=== PATIENT | female | born 1980 | race Caucasian/White ===

== ENCOUNTER 2019-02-25 10:13 | Observation (INO) | payer BC ==
[2019-02-25] MEDS ORDERED: Sodium Chloride 0.9% 10 ML Syringe FLUSH PRN (10:23)
[2019-02-25] MEDS ORDERED: Sodium Chloride 0.9% 1,000 ML IV ONE (10:23)
[2019-02-25] MEDS ORDERED: Sodium Chloride 0.9% 2.5 ML Syringe FLUSH PRN (10:23)
[2019-02-25] MEDS ORDERED: methylPREDNISolone Sodium Succinate 125 MG/2 ML SDV IVPUSH ONE (10:23)
[2019-02-25] MEDS ORDERED: Albuterol/Ipratropium 3.0-0.5 MG/3 ML Neb Soln NEB ONE ×2 (10:23→11:56)
--- NOTE | 2019-02-25 10:24 | EDM.PDOC ---
ED HPI GENERAL MEDICAL PROBLEM - General Chief Complaint: Respiratory Problem Stated Complaint: UNABLE TO BREATH Time Seen by Provider: 02/25/19 10:15 - History of Present Illness INITIAL COMMENTS - FREE TEXT/NARRATIVE: HISTORY AND PHYSICAL: History of present illness: The patient is a 38-year-old female who is no significant cardiac or pulmonary history and presents with persistent spastic cough shortness of breath and wheezing. The patient smokes a pack of cigarettes a day for the last 12 years but has never been diagnosed with any pulmonary disease and has had 2 visits to the [facility] clinic as well as an ER visit in [facility] 3 days ago for similar symptoms. She has been on inhalers and prednisone courses and is not improving. She was on a course of Levaquin the january into this month which she has finished. 3 days ago at the ED in [facility] she was given a chest x-ray as well as nebulizer treatments and her steroids were increased to prednisone 20 mg twice a day, she was given her inhalers she was given 2 nebulizer medications for home, one of which she says is a steroid, and she has a physician to follow-up with but has not had a chance to make that appointment as she's been in and out of these ED using clinics. She says she is not improving and she has not been smoking the last few days. She has been eating and drinking normally but she says she is very sore from coughing so much so hard all the time. She says even ambulating to the kitchen or bathroom in her house will trigger a cough and she can't catch her breath and is here for reevaluation and care. Prior to all of these events of the last few weeks she has never had any issues with bronchitis or reactive airway disease. She did not get her influenza shot this year Review of systems: As per history of present illness and below otherwise all systems reviewed and negative. Past medical history: As per history of present illness and as reviewed below otherwise noncontributory. Surgical history: As per history of present illness and as reviewed below otherwise noncontributory. Social history: No reported history of drug or alcohol abuse. Family history: As per history of present illness and as reviewed below otherwise noncontributory. Physical exam: General: Obese female who is nontoxic and has a spastic dry cough in the ED and is speaking softly but is not hoarse. She is breathless with any activity. HEENT: Atraumatic, normocephalic, pupils reactive, negative for conjunctival pallor or scleral icterus, mucous membranes moist, throat clear, neck supple, nontender, trachea midline. Lungs: Coarse breath sounds and scattered wheezes throughout and diminished breath sounds in the bases, mild work of breathing breath sounds equal bilaterally, chest nontender. Heart: S1S2, regular rate and rhythm no overt murmurs Abdomen: Soft, nondistended, nontender. Negative for masses or hepatosplenomegaly. Negative for costovertebral tenderness. Pelvis: Stable nontender. Genitourinary: Deferred. Rectal: Deferred. Extremities: Atraumatic, negative for cords or calf pain. Neurovascular unremarkable. Trace pedal edema Neuro: Awake, alert, oriented. Cranial nerves II through XII unremarkable. Cerebellum unremarkable. Motor and sensory unremarkable throughout. Exam nonfocal. Diagnostics: EKG chest x-ray CBC CMP lactic acid influenza hCG Therapeutics: IV O2 monitor IV fluids Solu-Medrol duo neb The patient's O2 sats have been harboring around 94% but the patient is still taking short shallow breaths and still very dysmetric clinically and has a cough and increased shortness of breath when she is doing any activities here. She is currently on maximum outpatient therapy as far as I can see and I will discuss this case with Dr. Epps for observation admission to see if we can optimize things a bit more. She says she is having great difficulty even doing her activities of daily living due to the cough and getting short of breath with even small activities. She is agreeable for observation admission 1255: Dr. Epps is aware of case and is here in the ED seeing the patient Impression: Persistent bronchospasm, failed outpatient therapy Definitive disposition and diagnosis as appropriate pending reevaluation and review of above. Whole Body Pain Score (Numeric/FACES): 7 - Related Data Allergies Allergy/AdvReac Type Severity Reaction Status Date / Time No Known Allergies Allergy Verified 02/25/19 10:22 Home Meds: Home Meds Albuterol Sulfate [Albuterol Sulfate Hfa] 1 puff INH ASDIRECTED 02/25/19 [ History] Albuterol/Ipratropium [DuoNeb 3.0-0.5 MG/3 ML] 1 dose INH ASDIRECTED 02/25/19 [ History] levoFLOXacin [Levaquin] 750 mg PO DAILY 02/25/19 [History] predniSONE [Prednisone] 20 mg PO BID 02/25/19 [History] Past Medical History HEENT History: Reports: Allergic Rhinitis Cardiovascular History: Reports: None Respiratory History: Reports: Other (See Below) Other Respiratory History: cough, un diagnosed sleep apnea Gastrointestinal History: Reports: None Genitourinary History: Reports: None [employer] History: Reports: Polycystic Ovaries Musculoskeletal History: Reports: None Neurological History: Reports: None Psychiatric History: Reports: Anxiety, Depression Endocrine/Metabolic History: Reports: Obesity/BMI 30+ Hematologic History: Reports: None Immunologic History: Reports: None Oncologic (Cancer) History: Reports: None Dermatologic History: Reports: None - Past Surgical History Head Surgeries/Procedures: Reports: None HEENT Surgical History: Reports: None, Myringotomy w Tube(s), Tonsillectomy Cardiovascular Surgical History: Reports: None Respiratory Surgical History: Reports: None GI Surgical History: Reports: Cholecystectomy Female Surgical History: Reports: None Male Surgical History: Reports: None Endocrine Surgical History: Reports: None Neurological Surgical History: Reports: None Musculoskeletal Surgical History: Reports: None Oncologic Surgical History: Reports: None Dermatological Surgical History: Reports: None Social & Family History - Caffeine Use Caffeine Use: Reports: Coffee ED ROS GENERAL - Review of Systems Review Of Systems: ROS reveals no pertinent complaints other than HPI. ED EXAM, GENERAL - Physical Exam Exam: See Below (see dictation) Course - Vital Signs Last Recorded V/S: Last Vital Signs Temp 36.4 C 02/25/19 10:43 Pulse 89 02/25/19 10:43 Resp 22 H 02/25/19 10:43 BP 136/79 02/25/19 10:43 Pulse Ox 96 02/25/19 10:43 - Orders/Labs/Meds Orders: Active Orders 24 hr Category Date Time Status Cardiac Monitoring [RC] . DIRECTED Care 02/25/19 10:22 Active EKG Documentation Completion [RC] STAT Care 02/25/19 10:22 Active Oxygen Therapy, ED [RC] ASDIRECTED Care 02/25/19 10:22 Active Pulse Oximetry [RC] ASDIRECTED Care 02/25/19 10:22 Active RT Aerosol Therapy [RC] ASDIRECTED Care 02/25/19 10:23 Active RT Aerosol Therapy [RC] ASDIRECTED Care 02/25/19 11:57 Active Sodium Chloride 0.9% [Saline Flush] Med 02/25/19 10:23 Active 10 ml FLUSH ASDIRECTED PRN Sodium Chloride 0.9% [Saline Flush] Med 02/25/19 10:23 Active 2.5 ml FLUSH ASDIRECTED PRN Saline Lock Insert [OM.PC] Stat Oth 02/25/19 10:21 Ordered Medication Orders Sodium Chloride (Saline Flush) 10 ml FLUSH ASDIRECTED PRN PRN Reason: Keep Vein Open Last Admin: 02/25/19 11:16 Dose: 10 ml Sodium Chloride (Saline Flush) 2.5 ml FLUSH ASDIRECTED PRN PRN Reason: Keep Vein Open Last Admin: 02/25/19 11:16 Dose: 2.5 ml Labs: Laboratory Tests 02/25/19 02/25/19 02/25/19 Range/Units 10:40 10:40 10:40 WBC 12.96 H (4.0-11.0) K/uL RBC 5.07 (4.30-5.90) M/uL Hgb 14.1 (12.0-16.0) g/dL Hct 44.4 (36.0-46.0) % MCV 87.6 (80.0-98.0) fL MCH 27.8 (27.0-32.0) pg MCHC 31.8 (31.0-37.0) g/dL RDW Std Deviation 50.3 (28.0-62.0) fl RDW Coeff of Theresa 16 H (11.0-15.0) % Plt Count 234 (150-400) K/uL MPV 11.00 (7.40-12.00) fL Neut % (Auto) 69.0 (48.0-80.0) % Lymph % (Auto) 20.8 (16.0-40.0) % [place] % (Auto) 7.7 (0.0-15.0) % Eos % (Auto) 2.2 (0.0-7.0) % Baso % (Auto) 0.3 (0.0-1.5) % Neut # (Auto) 9.0 H (1.4-5.7) K/uL Lymph # (Auto) 2.7 H (0.6-2.4) K/uL [place] # (Auto) 1.0 H (0.0-0.8) K/uL Eos # (Auto) 0.3 (0.0-0.7) K/uL Baso # (Auto) 0.0 (0.0-0.1) K/uL Nucleated RBC % 0.0 /100WBC Nucleated RBCs # 0 K/uL Lactate 1.6 (0.20-2.00) mmol/L Sodium 143 (136-145) mmol/L Potassium 4.1 (3.5-5.1) mmol/L Chloride 106 (98-107) mmol/L Carbon Dioxide 25.6 (21.0-32.0) mmol/L BUN 15 (7.0-18.0) mg/dL Creatinine 0.7 (0.6-1.0) mg/dL Est Cr Clr Drug Dosing 99.01 mL/min Estimated GFR (MDRD) > 60.0 ml/min Glucose 87 (74-106) mg/dL Calcium 8.6 (8.5-10.1) mg/dL Total Bilirubin 0.2 (0.2-1.0) mg/dL AST 18 (15-37) IU/L ALT 21 (14-63) IU/L Alkaline Phosphatase 72 (46-116) U/L Total Protein 6.5 (6.4-8.2) g/dL Albumin 2.8 L (3.4-5.0) g/dL Globulin 3.7 (2.6-4.0) g/dL Albumin/Globulin Ratio 0.8 L (0.9-1.6) HCG, Qual (NEG) 02/25/19 Range/Units 10:40 WBC (4.0-11.0) K/uL RBC (4.30-5.90) M/uL Hgb (12.0-16.0) g/dL Hct (36.0-46.0) % MCV (80.0-98.0) fL MCH (27.0-32.0) pg MCHC (31.0-37.0) g/dL RDW Std Deviation (28.0-62.0) fl RDW Coeff of Theresa (11.0-15.0) % Plt Count (150-400) K/uL MPV (7.40-12.00) fL Neut % (Auto) (48.0-80.0) % Lymph % (Auto) (16.0-40.0) % [place] % (Auto) (0.0-15.0) % Eos % (Auto) (0.0-7.0) % Baso % (Auto) (0.0-1.5) % Neut # (Auto) (1.4-5.7) K/uL Lymph # (Auto) (0.6-2.4) K/uL [place] # (Auto) (0.0-0.8) K/uL Eos # (Auto) (0.0-0.7) K/uL Baso # (Auto) (0.0-0.1) K/uL Nucleated RBC % /100WBC Nucleated RBCs # K/uL Lactate (0.20-2.00) mmol/L Sodium (136-145) mmol/L Potassium (3.5-5.1) mmol/L Chloride (98-107) mmol/L Carbon Dioxide (21.0-32.0) mmol/L BUN (7.0-18.0) mg/dL Creatinine (0.6-1.0) mg/dL Est Cr Clr Drug Dosing mL/min Estimated GFR (MDRD) ml/min Glucose (74-106) mg/dL Calcium (8.5-10.1) mg/dL Total Bilirubin (0.2-1.0) mg/dL AST (15-37) IU/L ALT (14-63) IU/L Alkaline Phosphatase (46-116) U/L Total Protein (6.4-8.2) g/dL Albumin (3.4-5.0) g/dL Globulin (2.6-4.0) g/dL Albumin/Globulin Ratio (0.9-1.6) HCG, Qual NEGATIVE (NEG) Meds: Medications Generic Name Dose Route Start Last Admin Trade Name Freq PRN Reason Stop Dose Admin Sodium Chloride 10 ml 02/25/19 10:02/25/19 11:16 Saline Flush FLUSH 10 ml ASDIRECTED PRN Administration Keep Vein Open Sodium Chloride 2.5 ml 02/25/19 10:02/25/19 11:16 Saline Flush FLUSH 2.5 ml ASDIRECTED PRN Administration Keep Vein Open Discontinued Medications Generic Name Dose Route Start Last Admin Trade Name Freq PRN Reason Stop Dose Admin Albuterol/Ipratropium 3 ml 02/25/19 10:23 02/25/19 10:31 Duoneb 3.0-0.5 Mg/3 Ml NEB 02/25/19 10:24 3 ml ONETIME ONE Administration Albuterol/Ipratropium 3 ml 02/25/19 11:56 02/25/19 12:06 Duoneb 3.0-0.5 Mg/3 Ml NEB 02/25/19 11:57 3 ml ONETIME ONE Administration Sodium Chloride 1,000 mls @ 999 mls/hr 02/25/19 10:23 02/25/19 11:15 Normal Saline IV 02/25/19 11:23 999 mls/hr STAT ONE Administration Methylprednisolone Sodium Succinate 125 mg 02/25/19 10:23 02/25/19 11:16 Solu-Medrol IVPUSH 02/25/19 10:24 125 mg ONETIME ONE Administration Departure - Departure Time of Disposition: 12:57 Disposition: Refer to Observation Condition: Good Clinical Impression: Bronchospasm, Failure of outpatient treatment - Discharge Information Referrals: PCP,Unknown [Primary Care Provider] - Forms: ED Department Discharge - My Orders Last 24 Hours: My Active Orders 02/25/19 10:21 Saline Lock Insert [OM.PC] Stat 02/25/19 10:22 Cardiac Monitoring [RC] . DIRECTED EKG Documentation Completion [RC] STAT Oxygen Therapy, ED [RC] ASDIRECTED Pulse Oximetry [RC] ASDIRECTED 02/25/19 10:23 RT Aerosol Therapy [RC] ASDIRECTED Sodium Chloride 0.9% [Saline Flush] 10 ml FLUSH ASDIRECTED PRN Sodium Chloride 0.9% [Saline Flush] 2.5 ml FLUSH ASDIRECTED PRN 02/25/19 11:57 RT Aerosol Therapy [RC] ASDIRECTED - Assessment/Plan Last 24 Hours: My Active Orders 02/25/19 10:21 Saline Lock Insert [OM.PC] Stat 02/25/19 10:22 Cardiac Monitoring [RC] . DIRECTED EKG Documentation Completion [RC] STAT Oxygen Therapy, ED [RC] ASDIRECTED Pulse Oximetry [RC] ASDIRECTED 02/25/19 10:23 RT Aerosol Therapy [RC] ASDIRECTED Sodium Chloride 0.9% [Saline Flush] 10 ml FLUSH ASDIRECTED PRN Sodium Chloride 0.9% [Saline Flush] 2.5 ml FLUSH ASDIRECTED PRN 02/25/19 11:57 RT Aerosol Therapy [RC] ASDIRECTED
[2019-02-25 12:17] LABS: CHLORIDE,CL 106 mmol/L (98-107); SODIUM,NA 143 mmol/L (136-145)
--- NOTE | 2019-02-25 12:35 | CR ---
INDICATION: pain/sob COMPARISON: None. FINDINGS: Single portable AP view of the chest demonstrates adequate inflation of the lungs. No focal airspace consolidation, pneumothorax or effusion. Cardiomediastinal silhouette is unremarkable for an AP view. No acute osseous findings. IMPRESSION: Negative single AP view of the chest. - Consider dedicated PA and lateral views, as clinically warranted. Dictated by Carmelo Suarez MD @ 02/25/2019 12:33:44 PM Dictated by: Carmelo Suarez MD @ 02/25/2019 12:33:51 (Electronically Signed)
[2019-02-25] MEDS ORDERED: Acetaminophen 325 MG Tab PO PRN (13:14)
[2019-02-25] MEDS ORDERED: Docusate Sodium 100 MG Cap PO PRN (13:14)
[2019-02-25] MEDS ORDERED: Ondansetron 4 MG Tab.DIS PO PRN (13:14)
--- NOTE | 2019-02-25 13:25 | PCM.HP ---
H&P History of Present Illness - General Date of Service: 02/25/19 Admit Problem/Dx: Admission Diagnosis/Problem Admission Diagnosis/Problem Bronchospasm, shortness of breath Source of Information: Patient History Limitations: Reports: No Limitations - History of Present Illness Initial Comments - Free Text/Narative: The patient is a 38-year-old lady who had presented to the emergency department with a complaint of persistent cough with shortness of breath and wheezing. The patient reports that this is been going on for approximately 2 weeks. The patient had followed up with an urgent care center and received some treatment but this did not help her. So had been on some steroids and some antibiotics which have not worked. The patient also has been using nebulizer treatments at home and these have not helped her. The patient has denied any fever or chills. She says that she is very fatigued from not being able to sleep secondary to the coughing. Patient also has not been able to cough up any sputum. The patient has never been diagnosed with any particular heart or respiratory disease. The patient has had no specific aggravating or relieving factors. She also denied any sick contacts. Onset of Symptoms: Reports: Gradual Duration of Symptoms: Reports: Week(s):, Getting Worse Location: Reports: Chest Quality: Reports: Ache Severity: Moderate Improves with: Reports: Rest Worsens with: Reports: Breathing Context: Denies: Sick Contact Associated Symptoms: Reports: Cough, Loss of Appetite Whole Body Pain Score (Numeric/FACES): 7 - Related Data Allergies/Adverse Reactions: Allergies Allergy/AdvReac Type Severity Reaction Status Date / Time No Known Allergies Allergy Verified 02/25/19 10:22 Home Medications: Home Meds Albuterol Sulfate [Albuterol Sulfate Hfa] 1 puff INH ASDIRECTED 02/25/19 [ History] Albuterol/Ipratropium [DuoNeb 3.0-0.5 MG/3 ML] 1 dose INH ASDIRECTED 02/25/19 [ History] levoFLOXacin [Levaquin] 750 mg PO DAILY 02/25/19 [History] predniSONE [Prednisone] 20 mg PO BID 02/25/19 [History] Past Medical History HEENT History: Reports: Allergic Rhinitis Cardiovascular History: Reports: None Respiratory History: Reports: Other (See Below) Other Respiratory History: cough, un diagnosed sleep apnea Gastrointestinal History: Reports: None Genitourinary History: Reports: None [employer]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: Polycystic Ovaries Musculoskeletal History: Reports: None Neurological History: Reports: None Psychiatric History: Reports: Anxiety, Depression Endocrine/Metabolic History: Reports: Obesity/BMI 30+ Hematologic History: Reports: None Immunologic History: Reports: None Oncologic (Cancer) History: Reports: None Dermatologic History: Reports: None - Infectious Disease History Infectious Disease History: Reports: None - Past Surgical History Head Surgeries/Procedures: Reports: None HEENT Surgical History: Reports: None, Myringotomy w Tube(s), Tonsillectomy Cardiovascular Surgical History: Reports: None Respiratory Surgical History: Reports: None GI Surgical History: Reports: Cholecystectomy Female Surgical History: Reports: None Male Surgical History: Reports: None Endocrine Surgical History: Reports: None Neurological Surgical History: Reports: None Musculoskeletal Surgical History: Reports: None Oncologic Surgical History: Reports: None Dermatological Surgical History: Reports: None Social & Family History - Family History Family Medical History: Noncontributory - Tobacco Use Smoking Status *Q: Current Every Day Smoker Years of Tobacco use: 14 Packs/Tins Daily: 0.5 - Caffeine Use Caffeine Use: Reports: Coffee - Recreational Drug Use Recreational Drug Use: No - Living Situation & Occupation Living situation: Reports: , with Spouse Occupation: Unemployed H&P Review of Systems - Review of Systems: Review Of Systems: See Below General: Reports: Weakness, Fatigue, Other (Poor sleep) HEENT: Reports: No Symptoms Pulmonary: Reports: Shortness of Breath, Wheezing, Cough. Denies: Sputum Cardiovascular: Reports: Orthopnea Gastrointestinal: Reports: No Symptoms Genitourinary: Reports: No Symptoms Musculoskeletal: Reports: No Symptoms Skin: Reports: No Symptoms Psychiatric: Reports: No Symptoms Neurological: Reports: No Symptoms Hematologic/Lymphatic: Reports: No Symptoms Immunologic: Reports: No Symptoms Exam - Exam Exam: See Below - Vital Signs Vital Signs: Last Vital Signs Temp 36.4 C 02/25/19 10:43 Pulse 88 02/25/19 12:57 Resp 16 02/25/19 12:57 BP 129/78 02/25/19 12:57 Pulse Ox 93 L 02/25/19 12:57 Weight: 156.489 kg - Exam Quality Assessment: Supplemental Oxygen General: Alert (Morbidly obese), Oriented, Cooperative, Mild Distress HEENT: Conjunctiva Clear, EACs Clear, EOMI, Mucosa Moist & [place], Pupils Equal, PERRLA Neck: Supple, Trachea Midline Lungs: Decreased Breath Sounds, Crackles, Rales Cardiovascular: Regular Rate, Regular Rhythm GI/Abdominal Exam: Normal Bowel Sounds, Soft, Non-Tender, No Distention, Other ( Obese) Back Exam: Normal Inspection, Full Range of Motion Extremities: Normal Inspection, Normal Range of Motion, No Pedal Edema Skin: Warm, Dry, Intact Neurological: Cranial Nerves Intact Neuro Extensive - Mental Status: Alert, Oriented x3 Psychiatric: Alert, Normal Affect, Normal Mood - Patient Data Lab Results Last 24 hrs: Laboratory Results - last 24 hr 02/25/19 02/25/19 02/25/19 Range/Units 10:40 10:40 10:40 WBC 12.96 H (4.0-11.0) K/uL RBC 5.07 (4.30-5.90) M/uL Hgb 14.1 (12.0-16.0) g/dL Hct 44.4 (36.0-46.0) % MCV 87.6 (80.0-98.0) fL MCH 27.8 (27.0-32.0) pg MCHC 31.8 (31.0-37.0) g/dL RDW Std Deviation 50.3 (28.0-62.0) fl RDW Coeff of Theresa 16 H (11.0-15.0) % Plt Count 234 (150-400) K/uL MPV 11.00 (7.40-12.00) fL Neut % (Auto) 69.0 (48.0-80.0) % Lymph % (Auto) 20.8 (16.0-40.0) % [place] % (Auto) 7.7 (0.0-15.0) % Eos % (Auto) 2.2 (0.0-7.0) % Baso % (Auto) 0.3 (0.0-1.5) % Neut # (Auto) 9.0 H (1.4-5.7) K/uL Lymph # (Auto) 2.7 H (0.6-2.4) K/uL [place] # (Auto) 1.0 H (0.0-0.8) K/uL Eos # (Auto) 0.3 (0.0-0.7) K/uL Baso # (Auto) 0.0 (0.0-0.1) K/uL Nucleated RBC % 0.0 /100WBC Nucleated RBCs # 0 K/uL Lactate 1.6 (0.20-2.00) mmol/L Sodium 143 (136-145) mmol/L Potassium 4.1 (3.5-5.1) mmol/L Chloride 106 (98-107) mmol/L Carbon Dioxide 25.6 (21.0-32.0) mmol/L BUN 15 (7.0-18.0) mg/dL Creatinine 0.7 (0.6-1.0) mg/dL Est Cr Clr Drug Dosing 99.01 mL/min Estimated GFR (MDRD) > 60.0 ml/min Glucose 87 (74-106) mg/dL Calcium 8.6 (8.5-10.1) mg/dL Total Bilirubin 0.2 (0.2-1.0) mg/dL AST 18 (15-37) IU/L ALT 21 (14-63) IU/L Alkaline Phosphatase 72 (46-116) U/L Total Protein 6.5 (6.4-8.2) g/dL Albumin 2.8 L (3.4-5.0) g/dL Globulin 3.7 (2.6-4.0) g/dL Albumin/Globulin Ratio 0.8 L (0.9-1.6) HCG, Qual (NEG) 02/25/19 Range/Units 10:40 WBC (4.0-11.0) K/uL RBC (4.30-5.90) M/uL Hgb (12.0-16.0) g/dL Hct (36.0-46.0) % MCV (80.0-98.0) fL MCH (27.0-32.0) pg MCHC (31.0-37.0) g/dL RDW Std Deviation (28.0-62.0) fl RDW Coeff of Theresa (11.0-15.0) % Plt Count (150-400) K/uL MPV (7.40-12.00) fL Neut % (Auto) (48.0-80.0) % Lymph % (Auto) (16.0-40.0) % [place] % (Auto) (0.0-15.0) % Eos % (Auto) (0.0-7.0) % Baso % (Auto) (0.0-1.5) % Neut # (Auto) (1.4-5.7) K/uL Lymph # (Auto) (0.6-2.4) K/uL [place] # (Auto) (0.0-0.8) K/uL Eos # (Auto) (0.0-0.7) K/uL Baso # (Auto) (0.0-0.1) K/uL Nucleated RBC % /100WBC Nucleated RBCs # K/uL Lactate (0.20-2.00) mmol/L Sodium (136-145) mmol/L Potassium (3.5-5.1) mmol/L Chloride (98-107) mmol/L Carbon Dioxide (21.0-32.0) mmol/L BUN (7.0-18.0) mg/dL Creatinine (0.6-1.0) mg/dL Est Cr Clr Drug Dosing mL/min Estimated GFR (MDRD) ml/min Glucose (74-106) mg/dL Calcium (8.5-10.1) mg/dL Total Bilirubin (0.2-1.0) mg/dL AST (15-37) IU/L ALT (14-63) IU/L Alkaline Phosphatase (46-116) U/L Total Protein (6.4-8.2) g/dL Albumin (3.4-5.0) g/dL Globulin (2.6-4.0) g/dL Albumin/Globulin Ratio (0.9-1.6) HCG, Qual NEGATIVE (NEG) Result Diagrams: 02/25/19 10:40 02/25/19 10:40 Damaso Results Last 24 hrs: Microbiology 02/25/19 11:19 Influenza Type A Antigen Screen - Final Nasopharyngeal Swab NEGATIVE INFLUENZA A VIRUS AG REFERENCE RANGE: NEGATIVE Influenza Type B Antigen Screen - Final NEGATIVE INFLUENZA B VIRUS AG REFERENCE RANGE: NEGATIVE - Problem List (1) Acute respiratory failure SNOMED Code(s): 86552369 ICD Code: J96.00 - ACUTE RESPIRATORY FAILURE, UNSP W HYPOXIA OR HYPERCAPNIA Status: Acute Priority: High Current Visit: Yes Qualifiers: Respiratory failure complication: hypoxia Qualified Code(s): J96.01 - Acute respiratory failure with hypoxia (2) Bronchitis SNOMED Code(s): 32230135 ICD Code: J40 - BRONCHITIS, NOT SPECIFIED ACUTE OR CHRONIC Status: Acute Priority: High Current Visit: Yes (3) Morbid obesity with BMI of 60.0-69.9, adult SNOMED Code(s): 744074140, 81922702573670 ICD Code: E66.01 - MORBID (SEVERE) OBESITY DUE TO EXCESS CALORIES; Z68.44 - BODY MASS INDEX (BMI) 60.0-69.9, ADULT Status: Chronic Priority: Medium Current Visit: Yes (4) Sleep apnea SNOMED Code(s): 03007216 ICD Code: G47.30 - SLEEP APNEA, UNSPECIFIED Status: Chronic Priority: Medium Current Visit: Yes Qualifiers: Sleep apnea type: unspecified type Qualified Code(s): G47.30 - Sleep apnea , unspecified (5) Tobacco abuse SNOMED Code(s): 829022165 ICD Code: Z72.0 - TOBACCO USE Status: Chronic Priority: High Current Visit: Yes Problem List Initiated/Reviewed/Updated: Yes Orders Last 24hrs: Active Orders 24 hr Category Date Time Status Patient Status [ADT] Stat ADT 02/25/19 12:57 Active Cardiac Monitoring [RC] . DIRECTED Care 02/25/19 10:22 Active Oxygen Therapy [RC] PRN Care 02/25/19 13:15 Active RT Aerosol Therapy [RC] ASDIRECTED Care 02/25/19 10:23 Active RT Aerosol Therapy [RC] ASDIRECTED Care 02/25/19 13:19 Active Up ad Pamela [RC] ASDIRECTED Care 02/25/19 13:14 Active VTE/DVT Education [RC] PER UNIT ROUTINE Care 02/25/19 13:15 Active Vital Signs [RC] Q4H Care 02/25/19 13:15 Active Regular Diet [DIET] Diet 02/25/19 Lunch Active BASIC METABOLIC PANEL,BMP [CHEM] AM Lab 02/26/19 05:11 Ordered CBC WITH AUTO DIFF [HEME] AM Lab 02/26/19 05:11 Ordered Acetaminophen [Tylenol] Med 02/25/19 13:14 Active 650 mg PO Q4H PRN Albuterol/Ipratropium [DuoNeb 3.0-0.5 MG/3 ML] Med 02/25/19 13:14 Active 3 ml NEB Q4HRRT PRN Azithromycin [Zithromax] 250 mg Med 02/25/19 13:15 Active Sodium Chloride 0.9% [Normal Saline] 250 ml IV Q24H Codeine/Promethazine [Phenergan with Codeine] Med 02/25/19 16:00 Active 5 ml PO Q4HR Docusate Sodium [Colace] Med 02/25/19 13:14 Active 100 mg PO BID PRN Enoxaparin [Lovenox] Med 02/25/19 13:15 Active 40 mg SUBCUT Q24H Nicotine [Habitrol] Med 02/25/19 13:15 Active 14 mg TRDERM DAILY Ondansetron [Zofran ODT] Med 02/25/19 13:14 Active 4 mg PO Q4H PRN Sodium Chloride 0.9% [Saline Flush] Med 02/25/19 10:23 Active 10 ml FLUSH ASDIRECTED PRN Sodium Chloride 0.9% [Saline Flush] Med 02/25/19 10:23 Active 2.5 ml FLUSH ASDIRECTED PRN Temazepam [Restoril] Med 02/25/19 13:14 Active 15 mg PO BEDTIME PRN methylPREDNISolone Sod Succ [Solu-MEDROL] Med 02/25/19 13:15 Active 125 mg IV Q8H oxyCODONE Med 02/25/19 13:14 Active 5 mg PO Q4H PRN Saline Lock Insert [OM.PC] Stat Oth 02/25/19 10:21 Ordered Resuscitation Status Routine Resus Stat 02/25/19 13:14 Ordered Medication Orders Acetaminophen (Tylenol) 650 mg PO Q4H PRN PRN Reason: Pain (Mild 1-3)/fever Albuterol/Ipratropium (Duoneb 3.0-0.5 Mg/3 Ml) 3 ml NEB Q4HRRT PRN PRN Reason: Shortness Of Breath/wheezing Docusate Sodium (Colace) 100 mg PO BID PRN PRN Reason: Constipation Enoxaparin Sodium (Lovenox) 40 mg SUBCUT Q24H SRINIVAS Azithromycin 250 mg/ Sodium (Chloride) 250 mls @ 250 mls/hr IV Q24H [facility] Methylprednisolone Sodium Succinate (Solu-Medrol) 125 mg IV Q8H SR[facility] Nicotine (Habitrol) 14 mg TRDERM DAILY [facility] Ondansetron HCl (Zofran Odt) 4 mg PO Q4H PRN PRN Reason: nausea, able to take PO Oxycodone HCl (Oxycodone) 5 mg PO Q4H PRN PRN Reason: Pain (moderate 4-6) Promethazine HCl/Codeine (Phenergan With Codeine) 5 ml PO Q4HR SRINIVAS Sodium Chloride (Saline Flush) 10 ml FLUSH ASDIRECTED PRN PRN Reason: Keep Vein Open Last Admin: 02/25/19 11:16 Dose: 10 ml Sodium Chloride (Saline Flush) 2.5 ml FLUSH ASDIRECTED PRN PRN Reason: Keep Vein Open Last Admin: 02/25/19 11:16 Dose: 2.5 ml Temazepam (Restoril) 15 mg PO BEDTIME PRN PRN Reason: Sleep Assessment/Plan Comment:: The patient is a 38-year-old lady who will be admitted secondary to bronchitis as well as bronchospasm. The patient is on oxygen secondary to acute respiratory failure with hypoxia. She'll be kept on oxygen to help keep her saturations above 92%. Also because of the patient's cough interfering with her ability to properly breathe and sleep she has been given Phenergan with codeine 5 mL every 4 hours as needed for cough. The patient is morbidly obese at 57.4 kg /m and this is likely contributing to the patient's ventilation issues. Is likely the patient has obstructive sleep apnea however the patient has not been able to follow-up with sleep specialist for this. The patient will be kept on methylprednisolone 125 mg IV every 8 hours, azithromycin 250 mg IV every day, and a nicotine patch given for the patient's smoking habit. She has been strongly counseled with regards to smoking cessation. The patient will also be kept on regular diet as tolerated. Repeat laboratory studies been ordered.
[2019-02-25] MEDS: methylPREDNISolone Sodium Succinate 125 MG/2 ML SDV IV SCH ×2 (14:18→21:37)
[2019-02-25] MEDS: Enoxaparin 40 MG/0.4 ML Syringe SUBCUT SCH (14:23)
[2019-02-25] MEDS: Nicotine 14 MG/24 Hr Patch TRDERM SCH (14:25)
[2019-02-25] MEDS: Azithromycin 250 MG in Sodium Chloride 0.9% 250 ML IV SCH (14:43)
[2019-02-25] MEDS: Albuterol/Ipratropium 3.0-0.5 MG/3 ML Neb Soln NEB PRN (15:26)
[2019-02-25] MEDS: Codeine/Promethazine 10-6.25 MG/5 ML Syrup 5 ML UD Cup PO SCH ×3 (15:58→23:59)
[2019-02-25] MEDS: oxyCODONE 5 MG Tab PO PRN (19:53)
[2019-02-26] MEDS: oxyCODONE 5 MG Tab PO PRN ×6 (04:10→23:57)
[2019-02-26] MEDS: Codeine/Promethazine 10-6.25 MG/5 ML Syrup 5 ML UD Cup PO SCH ×6 (04:10→23:58)
[2019-02-26] MEDS: methylPREDNISolone Sodium Succinate 125 MG/2 ML SDV IV SCH ×3 (05:50→20:51)
[2019-02-26 06:20] LABS: CHLORIDE,CL 105 mmol/L (98-107); SODIUM,NA 139 mmol/L (136-145)
[2019-02-26] MEDS: Albuterol/Ipratropium 3.0-0.5 MG/3 ML Neb Soln NEB PRN ×3 (07:23→20:51)
[2019-02-26] MEDS: Nicotine 14 MG/24 Hr Patch TRDERM SCH (08:14)
--- NOTE | 2019-02-26 10:07 | PCM.PN ---
- General Info Date of Service: 02/26/19 Admission Dx/Problem (Free Text): Admission Diagnosis/Problem Admission Diagnosis/Problem Bronchospasm, shortness of breath Subjective Update: The patient is a 38-year-old lady who had presented to the emergency department out of concern for continuing shortness of breath. The patient was admitted, placed on IV steroids and antibiotics. The patient says that she is somewhat better. The patient is still complaining of wheezing with cough. Patient has been tolerating her diet. She has denied any pain. Patient says that she slept only 2 hours yesterday. Functional Status: Reports: Pain Controlled - Review of Systems General: Reports: No Symptoms HEENT: Reports: No Symptoms Pulmonary: Reports: Shortness of Breath, Cough, Wheezing Cardiovascular: Reports: No Symptoms Gastrointestinal: Reports: No Symptoms Genitourinary: Reports: No Symptoms Musculoskeletal: Reports: No Symptoms Skin: Reports: No Symptoms Neurological: Reports: No Symptoms Psychiatric: Reports: No Symptoms - Patient Data Vitals - Most Recent: Last Vital Signs Temp 36.0 C 02/26/19 07:57 Pulse 83 02/26/19 07:57 Resp 18 02/26/19 07:57 BP 102/71 02/26/19 07:57 Pulse Ox 96 02/26/19 07:57 Weight - Most Recent: 156.489 kg I&O - Last 24 Hours: Intake & Output 02/25/19 02/26/19 02/26/19 22:59 06:59 14:59 Intake Total 200 1210 Output Total 100 1750 Balance 100 -540 Lab Results Last 24 Hours: Laboratory Results - last 24 hr 02/25/19 02/25/19 02/25/19 Range/Units 10:40 10:40 10:40 WBC 12.96 H (4.0-11.0) K/uL RBC 5.07 (4.30-5.90) M/uL Hgb 14.1 (12.0-16.0) g/dL Hct 44.4 (36.0-46.0) % MCV 87.6 (80.0-98.0) fL MCH 27.8 (27.0-32.0) pg MCHC 31.8 (31.0-37.0) g/dL RDW Std Deviation 50.3 (28.0-62.0) fl RDW Coeff of Theresa 16 H (11.0-15.0) % Plt Count 234 (150-400) K/uL MPV 11.00 (7.40-12.00) fL Neut % (Auto) 69.0 (48.0-80.0) % Lymph % (Auto) 20.8 (16.0-40.0) % [place] % (Auto) 7.7 (0.0-15.0) % Eos % (Auto) 2.2 (0.0-7.0) % Baso % (Auto) 0.3 (0.0-1.5) % Neut # (Auto) 9.0 H (1.4-5.7) K/uL Lymph # (Auto) 2.7 H (0.6-2.4) K/uL [place] # (Auto) 1.0 H (0.0-0.8) K/uL Eos # (Auto) 0.3 (0.0-0.7) K/uL Baso # (Auto) 0.0 (0.0-0.1) K/uL Add Manual Diff Neutrophils % (Manual) (48.0-80.0) % Band Neutrophils % % Lymphocytes % (Manual) (16.0-40.0) % Monocytes % (Manual) (0.0-15.0) % Nucleated RBC % 0.0 /100WBC Absolute Seg Neuts (1.4-5.7) Band Neutrophils # Lymphocytes # (Manual) (0.6-2.4) Monocytes # (Manual) (0.0-0.8) Nucleated RBCs # 0 K/uL Lactate 1.6 (0.20-2.00) mmol/L Sodium 143 (136-145) mmol/L Potassium 4.1 (3.5-5.1) mmol/L Chloride 106 (98-107) mmol/L Carbon Dioxide 25.6 (21.0-32.0) mmol/L BUN 15 (7.0-18.0) mg/dL Creatinine 0.7 (0.6-1.0) mg/dL Est Cr Clr Drug Dosing 99.01 mL/min Estimated GFR (MDRD) > 60.0 ml/min Glucose 87 (74-106) mg/dL Calcium 8.6 (8.5-10.1) mg/dL Total Bilirubin 0.2 (0.2-1.0) mg/dL AST 18 (15-37) IU/L ALT 21 (14-63) IU/L Alkaline Phosphatase 72 (46-116) U/L Total Protein 6.5 (6.4-8.2) g/dL Albumin 2.8 L (3.4-5.0) g/dL Globulin 3.7 (2.6-4.0) g/dL Albumin/Globulin Ratio 0.8 L (0.9-1.6) HCG, Qual (NEG) 02/25/19 02/26/19 02/26/19 Range/Units 10:40 05:50 05:50 WBC 18.01 H (4.0-11.0) K/uL RBC 5.13 (4.30-5.90) M/uL Hgb 14.1 (12.0-16.0) g/dL Hct 44.3 (36.0-46.0) % MCV 86.4 (80.0-98.0) fL MCH 27.5 (27.0-32.0) pg MCHC 31.8 (31.0-37.0) g/dL RDW Std Deviation 48.4 (28.0-62.0) fl RDW Coeff of Theresa 15 (11.0-15.0) % Plt Count 251 (150-400) K/uL MPV 11.00 (7.40-12.00) fL Neut % (Auto) (48.0-80.0) % Lymph % (Auto) (16.0-40.0) % [place] % (Auto) (0.0-15.0) % Eos % (Auto) (0.0-7.0) % Baso % (Auto) (0.0-1.5) % Neut # (Auto) (1.4-5.7) K/uL Lymph # (Auto) (0.6-2.4) K/uL [place] # (Auto) (0.0-0.8) K/uL Eos # (Auto) (0.0-0.7) K/uL Baso # (Auto) (0.0-0.1) K/uL Add Manual Diff YES Neutrophils % (Manual) 85 H (48.0-80.0) % Band Neutrophils % 1 % Lymphocytes % (Manual) 13 L (16.0-40.0) % Monocytes % (Manual) 1 (0.0-15.0) % Nucleated RBC % 0.0 /100WBC Absolute Seg Neuts 15.3 H (1.4-5.7) Band Neutrophils # 0.2 Lymphocytes # (Manual) 2.3 (0.6-2.4) Monocytes # (Manual) 0.2 (0.0-0.8) Nucleated RBCs # 0 K/uL Lactate (0.20-2.00) mmol/L Sodium 139 (136-145) mmol/L Potassium 4.3 (3.5-5.1) mmol/L Chloride 105 (98-107) mmol/L Carbon Dioxide 25.6 (21.0-32.0) mmol/L BUN 13 (7.0-18.0) mg/dL Creatinine 0.7 (0.6-1.0) mg/dL Est Cr Clr Drug Dosing 99.01 mL/min Estimated GFR (MDRD) > 60.0 ml/min Glucose 152 H (74-106) mg/dL Calcium 8.7 (8.5-10.1) mg/dL Total Bilirubin (0.2-1.0) mg/dL AST (15-37) IU/L ALT (14-63) IU/L Alkaline Phosphatase (46-116) U/L Total Protein (6.4-8.2) g/dL Albumin (3.4-5.0) g/dL Globulin (2.6-4.0) g/dL Albumin/Globulin Ratio (0.9-1.6) HCG, Qual NEGATIVE (NEG) Damaso Results Last 24 Hours: Microbiology 02/25/19 11:19 Influenza Type A Antigen Screen - Final Nasopharyngeal Swab NEGATIVE INFLUENZA A VIRUS AG REFERENCE RANGE: NEGATIVE Influenza Type B Antigen Screen - Final NEGATIVE INFLUENZA B VIRUS AG REFERENCE RANGE: NEGATIVE Med Orders - Current: Current Medications Acetaminophen (Tylenol) 650 mg PO Q4H PRN PRN Reason: Pain (Mild 1-3)/fever Albuterol/Ipratropium (Duoneb 3.0-0.5 Mg/3 Ml) 3 ml NEB Q4HRRT PRN PRN Reason: Shortness Of Breath/wheezing Last Admin: 02/26/19 07:23 Dose: 3 ml Docusate Sodium (Colace) 100 mg PO BID PRN PRN Reason: Constipation Enoxaparin Sodium (Lovenox) 40 mg SUBCUT Q24H [facility] Last Admin: 02/25/19 14:23 Dose: 40 mg Azithromycin 250 mg/ Sodium (Chloride) 250 mls @ 250 mls/hr IV Q24H [facility] Last Admin: 02/25/19 14:43 Dose: 250 mls/hr Methylprednisolone Sodium Succinate (Solu-Medrol) 125 mg IV Q8H [facility] Last Admin: 02/26/19 05:50 Dose: 125 mg Nicotine (Habitrol) 14 mg TRDERM DAILY [facility] Last Admin: 02/26/19 08:14 Dose: 14 mg Ondansetron HCl (Zofran Odt) 4 mg PO Q4H PRN PRN Reason: nausea, able to take PO Oxycodone HCl (Oxycodone) 5 mg PO Q4H PRN PRN Reason: Pain (moderate 4-6) Last Admin: 02/26/19 08:17 Dose: 5 mg Promethazine HCl/Codeine (Phenergan With Codeine) 5 ml PO Q4HR [facility] Last Admin: 02/26/19 08:14 Dose: 5 ml Sodium Chloride (Saline Flush) 10 ml FLUSH ASDIRECTED PRN PRN Reason: Keep Vein Open Last Admin: 02/25/19 11:16 Dose: 10 ml Sodium Chloride (Saline Flush) 2.5 ml FLUSH ASDIRECTED PRN PRN Reason: Keep Vein Open Last Admin: 02/25/19 11:16 Dose: 2.5 ml Temazepam (Restoril) 15 mg PO BEDTIME PRN PRN Reason: Sleep Discontinued Medications Albuterol/Ipratropium (Duoneb 3.0-0.5 Mg/3 Ml) 3 ml NEB ONETIME ONE Stop: 02/25/19 10:24 Last Admin: 02/25/19 10:31 Dose: 3 ml Albuterol/Ipratropium (Duoneb 3.0-0.5 Mg/3 Ml) 3 ml NEB ONETIME ONE Stop: 02/25/19 11:57 Last Admin: 02/25/19 12:06 Dose: 3 ml Sodium Chloride (Normal Saline) 1,000 mls @ 999 mls/hr IV STAT ONE Stop: 02/25/19 11:23 Last Admin: 02/25/19 11:15 Dose: 999 mls/hr Methylprednisolone Sodium Succinate (Solu-Medrol) 125 mg IVPUSH ONETIME ONE Stop: 02/25/19 10:24 Last Admin: 02/25/19 11:16 Dose: 125 mg - Exam Quality Assessment: Supplemental Oxygen General: Alert, Oriented, Cooperative, No Acute Distress HEENT: Pupils Equal, Pupils Reactive, EOMI, Mucous Membr. Moist/[place] Neck: Supple, Trachea Midline Lungs: Decreased Breath Sounds, Wheezing Cardiovascular: Regular Rate, Regular Rhythm GI/Abdominal Exam: Normal Bowel Sounds, Soft, Non-Tender, No Distention, Other ( Obese) Back Exam: Normal Inspection, Full Range of Motion Extremities: Normal Inspection, No Pedal Edema Skin: Warm, Dry, Intact Neurological: No New Focal Deficit Psy/Mental Status: Alert, Normal Affect, Normal Mood - Problem List & Annotations (1) Acute respiratory failure SNOMED Code(s): 96731498 Code(s): J96.00 - ACUTE RESPIRATORY FAILURE, UNSP W HYPOXIA OR HYPERCAPNIA Status: Acute Priority: High Current Visit: Yes Qualifiers: Respiratory failure complication: hypoxia Qualified Code(s): J96.01 - Acute respiratory failure with hypoxia Annotation/Comment:: Improved, still requiring oxygen. (2) Bronchitis SNOMED Code(s): 48917604 Code(s): J40 - BRONCHITIS, NOT SPECIFIED ACUTE OR CHRONIC Status: Acute Priority: High Current Visit: Yes (3) Morbid obesity with BMI of 60.0-69.9, adult SNOMED Code(s): 758229693, 35868632155716 Code(s): E66.01 - MORBID (SEVERE) OBESITY DUE TO EXCESS CALORIES; Z68.44 - BODY MASS INDEX (BMI) 60.0-69.9, ADULT Status: Chronic Priority: Medium Current Visit: Yes (4) Sleep apnea SNOMED Code(s): 22685121 Code(s): G47.30 - SLEEP APNEA, UNSPECIFIED Status: Chronic Priority: Medium Current Visit: Yes Qualifiers: Sleep apnea type: unspecified type Qualified Code(s): G47.30 - Sleep apnea , unspecified (5) Tobacco abuse SNOMED Code(s): 141161727 Code(s): Z72.0 - TOBACCO USE Status: Chronic Priority: High Current Visit: Yes - Problem List Review Problem List Initiated/Reviewed/Updated: Yes - My Orders Last 24 Hours: My Active Orders 02/25/19 13:14 Up ad Pamela [RC] ASDIRECTED Acetaminophen [Tylenol] 650 mg PO Q4H PRN Albuterol/Ipratropium [DuoNeb 3.0-0.5 MG/3 ML] 3 ml NEB Q4HRRT PRN Docusate Sodium [Colace] 100 mg PO BID PRN Ondansetron [Zofran ODT] 4 mg PO Q4H PRN Temazepam [Restoril] 15 mg PO BEDTIME PRN oxyCODONE 5 mg PO Q4H PRN Resuscitation Status Routine 02/25/19 13:15 Oxygen Therapy [RC] PRN VTE/DVT Education [RC] PER UNIT ROUTINE Vital Signs [RC] Q4H Azithromycin [Zithromax] 250 mg Sodium Chloride 0.9% [Normal Saline] 250 ml IV Q24H Enoxaparin [Lovenox] 40 mg SUBCUT Q24H Nicotine [Habitrol] 14 mg TRDERM DAILY methylPREDNISolone Sod Succ [Solu-MEDROL] 125 mg IV Q8H 02/25/19 13:19 RT Aerosol Therapy [RC] ASDIRECTED 02/25/19 16:00 Codeine/Promethazine [Phenergan with Codeine] 5 ml PO Q4HR 02/25/19 Lunch Regular Diet [DIET] - Plan Plan:: The patient is a 38-year-old lady has some improvement with her bronchospasm as well as a bronchitis. The patient will be kept on her azithromycin and Solu- Medrol. The patient has been experiencing some improvement in her overall symptoms however she still requiring oxygen support. This will be continued to keep her saturations above 92%. She is also on Phenergan with codeine 5 mils every 4 hours as needed to help with her cough. This should also help with her ability to get rest. The patient will be kept on DVT prophylaxis. She'll be continued on her nicotine patch due to her smoking history. The patient has been strongly counseled with regards to smoking cessation and future lung issues. Repeat laboratory studies been ordered. She is also to continue on her current regular diet as tolerated. Patient has been encouraged to ambulate.
[2019-02-26] MEDS: Enoxaparin 40 MG/0.4 ML Syringe SUBCUT SCH (12:29)
[2019-02-26] MEDS: Azithromycin 250 MG in Sodium Chloride 0.9% 250 ML IV SCH (13:37)
[2019-02-27] MEDS: methylPREDNISolone Sodium Succinate 125 MG/2 ML SDV IV SCH ×3 (05:26→20:31)
[2019-02-27] MEDS: Codeine/Promethazine 10-6.25 MG/5 ML Syrup 5 ML UD Cup PO SCH ×6 (05:26→23:44)
[2019-02-27 06:48] LABS: CHLORIDE,CL 106 mmol/L (98-107); SODIUM,NA 141 mmol/L (136-145)
[2019-02-27] MEDS: Nicotine 14 MG/24 Hr Patch TRDERM SCH (08:00)
--- NOTE | 2019-02-27 10:09 | PCM.PN ---
- General Info Date of Service: 02/27/19 Subjective Update: 38F hx of obesity, tobacco abuse admitted for acute bronchitis, pneumonia. Until now, she has been on azithromycin, solu-medrol and duonebs. Patient cites that she hasn't improved much. She has a dry cough that causes her discomfort. Otherwise, she denies any chest pain. She is requiring 1L o2 via NC. She has no history of asthma or COPD to her knowledge. She denies any calf tenderness. - Review of Systems General: Reports: Other (see HPI) - Patient Data Vitals - Most Recent: Last Vital Signs Temp 35.6 C 02/27/19 07:30 Pulse 71 02/27/19 07:30 Resp 18 02/27/19 07:30 BP 117/66 02/27/19 07:30 Pulse Ox 92 L 02/27/19 07:30 Weight - Most Recent: 156.489 kg I&O - Last 24 Hours: Intake & Output 02/26/19 02/27/19 02/27/19 22:59 06:59 14:59 Intake Total 1000 810 320 Output Total 1500 300 Balance -500 510 320 Lab Results Last 24 Hours: Laboratory Results - last 24 hr 02/27/19 02/27/19 Range/Units 06:00 06:00 WBC 19.37 H (4.0-11.0) K/uL RBC 5.05 (4.30-5.90) M/uL Hgb 13.9 (12.0-16.0) g/dL Hct 44.1 (36.0-46.0) % MCV 87.3 (80.0-98.0) fL MCH 27.5 (27.0-32.0) pg MCHC 31.5 (31.0-37.0) g/dL RDW Std Deviation 50.3 (28.0-62.0) fl RDW Coeff of Theresa 16 H (11.0-15.0) % Plt Count 242 (150-400) K/uL MPV 11.20 (7.40-12.00) fL Add Manual Diff YES Neutrophils % (Manual) 78 (48.0-80.0) % Band Neutrophils % 8 % Lymphocytes % (Manual) 12 L (16.0-40.0) % Monocytes % (Manual) 2 (0.0-15.0) % Nucleated RBC % 0.0 /100WBC Absolute Seg Neuts 15.1 H (1.4-5.7) Band Neutrophils # 1.5 Lymphocytes # (Manual) 2.3 (0.6-2.4) Monocytes # (Manual) 0.4 (0.0-0.8) Nucleated RBCs # 0 K/uL Sodium 141 (136-145) mmol/L Potassium 4.5 (3.5-5.1) mmol/L Chloride 106 (98-107) mmol/L Carbon Dioxide 28.1 (21.0-32.0) mmol/L BUN 18 (7.0-18.0) mg/dL Creatinine 0.6 (0.6-1.0) mg/dL Est Cr Clr Drug Dosing 115.52 mL/min Estimated GFR (MDRD) > 60.0 ml/min Glucose 135 H (74-106) mg/dL Calcium 8.7 (8.5-10.1) mg/dL Med Orders - Current: Current Medications Acetaminophen (Tylenol) 650 mg PO Q4H PRN PRN Reason: Pain (Mild 1-3)/fever Last Admin: 02/26/19 18:54 Dose: 650 mg Albuterol/Ipratropium (Duoneb 3.0-0.5 Mg/3 Ml) 3 ml NEB Q4HRRT PRN PRN Reason: Shortness Of Breath/wheezing Last Admin: 02/26/19 20:51 Dose: 3 ml Docusate Sodium (Colace) 100 mg PO BID PRN PRN Reason: Constipation Enoxaparin Sodium (Lovenox) 40 mg SUBCUT Q24H [facility] Last Admin: 02/26/19 12:29 Dose: 40 mg Azithromycin 250 mg/ Sodium (Chloride) 250 mls @ 250 mls/hr IV Q24H [facility] Last Admin: 02/26/19 13:37 Dose: 250 mls/hr Methylprednisolone Sodium Succinate (Solu-Medrol) 125 mg IV Q8H [facility] Last Admin: 02/27/19 05:26 Dose: 125 mg Nicotine (Habitrol) 14 mg TRDERM DAILY [facility] Last Admin: 02/27/19 08:00 Dose: 14 mg Ondansetron HCl (Zofran Odt) 4 mg PO Q4H PRN PRN Reason: nausea, able to take PO Oxycodone HCl (Oxycodone) 5 mg PO Q4H PRN PRN Reason: Pain (moderate 4-6) Last Admin: 02/26/19 23:57 Dose: 5 mg Promethazine HCl/Codeine (Phenergan With Codeine) 5 ml PO Q4HR [facility] Last Admin: 02/27/19 07:58 Dose: 5 ml Sodium Chloride (Saline Flush) 10 ml FLUSH ASDIRECTED PRN PRN Reason: Keep Vein Open Last Admin: 02/25/19 11:16 Dose: 10 ml Sodium Chloride (Saline Flush) 2.5 ml FLUSH ASDIRECTED PRN PRN Reason: Keep Vein Open Last Admin: 02/25/19 11:16 Dose: 2.5 ml Temazepam (Restoril) 15 mg PO BEDTIME PRN PRN Reason: Sleep Last Admin: 02/27/19 00:00 Dose: 15 mg Discontinued Medications Albuterol/Ipratropium (Duoneb 3.0-0.5 Mg/3 Ml) 3 ml NEB ONETIME ONE Stop: 02/25/19 10:24 Last Admin: 02/25/19 10:31 Dose: 3 ml Albuterol/Ipratropium (Duoneb 3.0-0.5 Mg/3 Ml) 3 ml NEB ONETIME ONE Stop: 02/25/19 11:57 Last Admin: 02/25/19 12:06 Dose: 3 ml Sodium Chloride (Normal Saline) 1,000 mls @ 999 mls/hr IV STAT ONE Stop: 02/25/19 11:23 Last Admin: 02/25/19 11:15 Dose: 999 mls/hr Methylprednisolone Sodium Succinate (Solu-Medrol) 125 mg IVPUSH ONETIME ONE Stop: 02/25/19 10:24 Last Admin: 02/25/19 11:16 Dose: 125 mg - Exam Quality Assessment: Supplemental Oxygen General: Alert, Oriented HEENT: Pupils Equal, Pupils Reactive, EOMI, Mucous Membr. Moist/[place] Neck: Supple Lungs: Wheezing Cardiovascular: Regular Rate, Regular Rhythm GI/Abdominal Exam: Normal Bowel Sounds, Soft, Non-Tender, No Organomegaly, No Distention, No Abnormal Bruit, No Mass, Pelvis Stable Back Exam: Normal Inspection, Full Range of Motion Extremities: Normal Inspection, Normal Range of Motion, Non-Tender, No Pedal Edema, Normal Capillary Refill Peripheral Pulses: 2+: Dorsalis Pedis (L), Dorsalis Pedis (R) Psy/Mental Status: Alert, Normal Affect, Normal Mood - Problem List Review Problem List Initiated/Reviewed/Updated: Yes - My Orders Last 24 Hours: My Active Orders 02/27/19 08:14 Chest 2V [CR] Stat 02/27/19 09:11 UA RFX TATA AND CULT IF INDIC [URIN] Stat - Plan Plan:: Assessment: #1. Acute bronchitis #2. Hypoxia #3. Leukocytosis - increased #4. Mild hyperglycemia #5. Obesity #6. Tobacco abuse Plan: #1. Will obtain a chest x-ray given continuing symptoms and lung exam to r/o possible pneumonia. Continue azithromycin for now for bronchitis. Will add rocephin should the x-ray point towards a pneumonia. #2. Obtain a1c #3. CBC, BMP tomorrow AM #4. Anticipate discharge 1-2 days. Will benefit from a PFT once stable as an outpatient.
[2019-02-27 10:37] LABS: HEMOGLOBIN A1C 5.1 % (4.5-6.2)
[2019-02-27] MEDS: oxyCODONE 5 MG Tab PO PRN ×3 (10:46→23:44)
--- NOTE | 2019-02-27 11:22 | CR ---
EXAMINATION: Two-view chest (PA and Lateral views). HISTORY: Shortness of breath. FINDINGS: The trachea is midline. The cardiomediastinal silhouette is within normal limits. Trace right basilar atelectasis and/or infiltrate. No pleural effusion or pneumothorax. Osseous structures appear unremarkable. IMPRESSION: Trace right basilar atelectasis and/or infiltrate.
[2019-02-27] MEDS ORDERED: cefTRIAXone 1 GM in Premix Bag 1 BAG IV SCH (13:00)
[2019-02-27] MEDS: Benzonatate 100 MG Cap PO PRN ×2 (13:24→23:44)
[2019-02-27] MEDS: Enoxaparin 40 MG/0.4 ML Syringe SUBCUT SCH (13:25)
[2019-02-27] MEDS: Azithromycin 250 MG in Sodium Chloride 0.9% 250 ML IV SCH (14:17)
[2019-02-27] MEDS: Albuterol/Ipratropium 3.0-0.5 MG/3 ML Neb Soln NEB PRN (20:38)
[2019-02-27] MEDS: Temazepam 15 MG Cap PO PRN ×2 (23:44)
[2019-02-28] MEDS: methylPREDNISolone Sodium Succinate 125 MG/2 ML SDV IV SCH (05:25)
[2019-02-28] MEDS: Codeine/Promethazine 10-6.25 MG/5 ML Syrup 5 ML UD Cup PO SCH ×2 (05:25→08:11)
[2019-02-28] MEDS: oxyCODONE 5 MG Tab PO PRN (05:25)
[2019-02-28 06:10] LABS: CHLORIDE,CL 105 mmol/L (98-107); SODIUM,NA 140 mmol/L (136-145)
[2019-02-28] MEDS: Albuterol/Ipratropium 3.0-0.5 MG/3 ML Neb Soln NEB PRN (06:11)
[2019-02-28] MEDS: Nicotine 14 MG/24 Hr Patch TRDERM SCH (08:11)
--- NOTE | 2019-02-28 09:14 | PCM.DCSUM1 ---
Discharge Summary - Hospital Course Free Text/Narrative:: Admission date: 02/25/2019 Discharge date: 02/28/2019 Admission diagnosis: #1. Acute bronchitis #2. Acute hypoxic respiratory failure #3. Tobacco abuse #4. Obesity Discharge diagnosis: #1. Community acquired pneumonia #2. Leukocytosis #3. Tobacco abuse #4. Obesity Hospital course: 38F hx of obesity, tobacco abuse that presented to the ER with shortness of breath, cough who failed outpatient therapy with PO levaquin, prednisone was admitted for further management. She was initially placed on duonebs, solumedrol and azithromycin. Patient's o2 demands were persistent, without significant improvement so a repeat CXR was obtained. This CXR showed a possible infiltrate. I added rocephin for this. The next morning, her o2 sat >92 % on RA. Leukocytosis is likely secondary to solumedrol and prednisone given as an outpatient prior. Will send her home on PO Cefdinir, albuterol inhaler. She was advised to f/u with her PCP. - Discharge Data Discharge Date: 02/28/19 Discharge Disposition: Home, Self-Care 01 Condition: Stable - Patient Instructions Diet: Usual Diet as Tolerated Activity: As Tolerated Driving: May Drive Today Notify Provider of: Fever, Increased Pain, Swelling and Redness, Nausea and/or Vomiting Other/Special Instructions: shortness of breath, chest pain - Discharge Plan Prescriptions/Med Rec: Cefdinir [Omnicef] 600 mg PO Q24H 4 Days #4 cap Home Medications: Home Meds Albuterol Sulfate [Albuterol Sulfate Hfa] 1 puff INH ASDIRECTED 02/25/19 [ History] Albuterol/Ipratropium [DuoNeb 3.0-0.5 MG/3 ML] 1 dose INH ASDIRECTED 02/25/19 [ History] Cefdinir [Omnicef] 600 mg PO Q24H 4 Days #4 cap 02/28/19 [Rx] Referrals: Joanna Coleman NP [Ordering Only Provider] - - Discharge Summary/Plan Comment DC Time >30 min.: No - Patient Data Vitals - Most Recent: Last Vital Signs Temp 36 C 02/28/19 08:00 Pulse 76 02/28/19 08:00 Resp 19 02/28/19 08:00 BP 115/70 02/28/19 08:00 Pulse Ox 94 L 02/28/19 08:00 Weight - Most Recent: 156.489 kg I&O - Last 24 hours: Intake & Output 02/27/19 02/28/19 02/28/19 22:59 06:59 14:59 Intake Total 1830 1630 Output Total 2225 1100 Balance -395 530 Lab Results - Last 24 hrs: Laboratory Results - last 24 hr 02/27/19 02/27/19 02/28/19 Range/Units 06:00 10:34 05:31 WBC 19.27 H (4.0-11.0) K/uL RBC 5.19 (4.30-5.90) M/uL Hgb 14.5 (12.0-16.0) g/dL Hct 45.5 (36.0-46.0) % MCV 87.7 (80.0-98.0) fL MCH 27.9 (27.0-32.0) pg MCHC 31.9 (31.0-37.0) g/dL RDW Std Deviation 50.4 (28.0-62.0) fl RDW Coeff of Theresa 16 H (11.0-15.0) % Plt Count 261 (150-400) K/uL MPV 11.60 (7.40-12.00) fL Neut % (Auto) 88.3 H (48.0-80.0) % Lymph % (Auto) 6.3 L (16.0-40.0) % [place] % (Auto) 5.3 (0.0-15.0) % Eos % (Auto) 0.0 (0.0-7.0) % Baso % (Auto) 0.1 (0.0-1.5) % Neut # (Auto) 17.0 H (1.4-5.7) K/uL Lymph # (Auto) 1.2 (0.6-2.4) K/uL [place] # (Auto) 1.0 H (0.0-0.8) K/uL Eos # (Auto) 0.0 (0.0-0.7) K/uL Baso # (Auto) 0.0 (0.0-0.1) K/uL Nucleated RBC % 0.0 /100WBC Nucleated RBCs # 0 K/uL Sodium (136-145) mmol/L Potassium (3.5-5.1) mmol/L Chloride (98-107) mmol/L Carbon Dioxide (21.0-32.0) mmol/L BUN (7.0-18.0) mg/dL Creatinine (0.6-1.0) mg/dL Est Cr Clr Drug Dosing mL/min Estimated GFR (MDRD) ml/min Glucose (74-106) mg/dL Hemoglobin A1c 5.1 (4.5-6.2) % Calcium (8.5-10.1) mg/dL Urine Color YELLOW Urine Appearance CLEAR Urine pH 6.5 (5.0-8.0) Ur Specific [place] 1.015 (1.001-1.035) Urine Protein NEGATIVE (NEGATIVE) mg/dL Urine Glucose (UA) NEGATIVE (NEGATIVE) mg/dL Urine Ketones NEGATIVE (NEGATIVE) mg/dL Urine Occult Blood NEGATIVE (NEGATIVE) Urine Nitrite NEGATIVE (NEGATIVE) Urine Bilirubin NEGATIVE (NEGATIVE) Urine Urobilinogen 0.2 (<2.0) EU/dL Ur Leukocyte Esterase NEGATIVE (NEGATIVE) 02/28/19 Range/Units 05:31 WBC (4.0-11.0) K/uL RBC (4.30-5.90) M/uL Hgb (12.0-16.0) g/dL Hct (36.0-46.0) % MCV (80.0-98.0) fL MCH (27.0-32.0) pg MCHC (31.0-37.0) g/dL RDW Std Deviation (28.0-62.0) fl RDW Coeff of Theresa (11.0-15.0) % Plt Count (150-400) K/uL MPV (7.40-12.00) fL Neut % (Auto) (48.0-80.0) % Lymph % (Auto) (16.0-40.0) % [place] % (Auto) (0.0-15.0) % Eos % (Auto) (0.0-7.0) % Baso % (Auto) (0.0-1.5) % Neut # (Auto) (1.4-5.7) K/uL Lymph # (Auto) (0.6-2.4) K/uL [place] # (Auto) (0.0-0.8) K/uL Eos # (Auto) (0.0-0.7) K/uL Baso # (Auto) (0.0-0.1) K/uL Nucleated RBC % /100WBC Nucleated RBCs # K/uL Sodium 140 (136-145) mmol/L Potassium 4.0 (3.5-5.1) mmol/L Chloride 105 (98-107) mmol/L Carbon Dioxide 27.1 (21.0-32.0) mmol/L BUN 21 H (7.0-18.0) mg/dL Creatinine 0.8 (0.6-1.0) mg/dL Est Cr Clr Drug Dosing 86.64 mL/min Estimated GFR (MDRD) > 60.0 ml/min Glucose 159 H (74-106) mg/dL Hemoglobin A1c (4.5-6.2) % Calcium 8.5 (8.5-10.1) mg/dL Urine Color Urine Appearance Urine pH (5.0-8.0) Ur Specific [place] (1.001-1.035) Urine Protein (NEGATIVE) mg/dL Urine Glucose (UA) (NEGATIVE) mg/dL Urine Ketones (NEGATIVE) mg/dL Urine Occult Blood (NEGATIVE) Urine Nitrite (NEGATIVE) Urine Bilirubin (NEGATIVE) Urine Urobilinogen (<2.0) EU/dL Ur Leukocyte Esterase (NEGATIVE) Med Orders - Current: Current Medications Acetaminophen (Tylenol) 650 mg PO Q4H PRN PRN Reason: Pain (Mild 1-3)/fever Last Admin: 02/26/19 18:54 Dose: 650 mg Albuterol/Ipratropium (Duoneb 3.0-0.5 Mg/3 Ml) 3 ml NEB Q4HRRT PRN PRN Reason: Shortness Of Breath/wheezing Last Admin: 02/28/19 06:11 Dose: 3 ml Benzonatate (Tessalon Perles) 200 mg PO Q8H PRN PRN Reason: COUGH Last Admin: 02/27/19 23:44 Dose: 200 mg Docusate Sodium (Colace) 100 mg PO BID PRN PRN Reason: Constipation Enoxaparin Sodium (Lovenox) 40 mg SUBCUT Q24H [facility] Last Admin: 02/27/19 13:25 Dose: 40 mg Azithromycin 250 mg/ Sodium (Chloride) 250 mls @ 250 mls/hr IV Q24H [facility] Last Admin: 02/27/19 14:17 Dose: 250 mls/hr Ceftriaxone Sodium/Dextrose 1 (gm/ Premix) 50 mls @ 100 mls/hr IV Q24H [facility] Last Admin: 02/27/19 13:40 Dose: 100 mls/hr Methylprednisolone Sodium Succinate (Solu-Medrol) 125 mg IV Q8H [facility] Last Admin: 02/28/19 05:25 Dose: 125 mg Nicotine (Habitrol) 14 mg TRDERM DAILY [facility] Last Admin: 02/28/19 08:11 Dose: 14 mg Ondansetron HCl (Zofran Odt) 4 mg PO Q4H PRN PRN Reason: nausea, able to take PO Oxycodone HCl (Oxycodone) 5 mg PO Q4H PRN PRN Reason: Pain (moderate 4-6) Last Admin: 02/28/19 05:25 Dose: 5 mg Promethazine HCl/Codeine (Phenergan With Codeine) 5 ml PO Q4HR [facility] Last Admin: 02/28/19 08:11 Dose: 5 ml Sodium Chloride (Saline Flush) 10 ml FLUSH ASDIRECTED PRN PRN Reason: Keep Vein Open Last Admin: 02/25/19 11:16 Dose: 10 ml Sodium Chloride (Saline Flush) 2.5 ml FLUSH ASDIRECTED PRN PRN Reason: Keep Vein Open Last Admin: 02/25/19 11:16 Dose: 2.5 ml Temazepam (Restoril) 15 mg PO BEDTIME PRN PRN Reason: Sleep Last Admin: 02/27/19 23:44 Dose: 15 mg Discontinued Medications Albuterol/Ipratropium (Duoneb 3.0-0.5 Mg/3 Ml) 3 ml NEB ONETIME ONE Stop: 02/25/19 10:24 Last Admin: 02/25/19 10:31 Dose: 3 ml Albuterol/Ipratropium (Duoneb 3.0-0.5 Mg/3 Ml) 3 ml NEB ONETIME ONE Stop: 02/25/19 11:57 Last Admin: 02/25/19 12:06 Dose: 3 ml Sodium Chloride (Normal Saline) 1,000 mls @ 999 mls/hr IV STAT ONE Stop: 02/25/19 11:23 Last Admin: 02/25/19 11:15 Dose: 999 mls/hr Methylprednisolone Sodium Succinate (Solu-Medrol) 125 mg IVPUSH ONETIME ONE Stop: 02/25/19 10:24 Last Admin: 02/25/19 11:16 Dose: 125 mg
[2019-02-28] MEDS: Benzonatate 100 MG Cap PO PRN (11:00)
== END 2019-02-28 11:00 | disposition home or self-care (01) ==
LOC: MW.ED 10:13 → MW.MS 13:07
PROVIDERS: ADMIT Internal Medicine; ATTEND Internal Medicine
DX: J20.9 Acute bronchitis, unspecified (principal); J96.01 Acute respiratory failure with hypoxia; J18.9 Pneumonia, unspecified organism; D72.829 Elevated white blood cell count, unspecified; G47.30 Sleep apnea, unspecified; F17.210 Nicotine dependence, cigarettes, uncomplicated; R73.9 Hyperglycemia, unspecified; E66.01 Morbid (severe) obesity due to excess calories; Z68.43 Body mass index [BMI] 50.0-59.9, adult; Z79.51 Long term (current) use of inhaled steroids
CPT/HCPCS: 36415; 71045; 71046; 80048; 80053; 81003; 83036; 83605; 84703; 85025; 87804; 93005; 94640; 96361; 96365; 96372; 96375; 96376; 99285; A9270; G0378; J0456; J0696; J1650; J2930; J7040; J7050; 96374; J7620-GY

== ENCOUNTER 2019-04-15 18:48 | Emergency (ER) | payer BC ==
[2019-04-15] MEDS ORDERED: Albuterol/Ipratropium 3.0-0.5 MG/3 ML Neb Soln ONE (19:02)
[2019-04-15] MEDS ORDERED: Albuterol/Ipratropium 3.0-0.5 MG/3 ML Neb Soln NEB ONE (19:02)
[2019-04-15] MEDS ORDERED: methylPREDNISolone Sodium Succinate 125 MG/2 ML SDV IV ONE (19:09)
--- NOTE | 2019-04-15 19:50 | EDM.PDOC ---
ED HPI GENERAL MEDICAL PROBLEM - General Chief Complaint: Respiratory Problem Stated Complaint: COUGH,AND SHORTNESS OF BREATH Time Seen by Provider: 04/15/19 18:49 Source of Information: Reports: Patient History Limitations: Reports: No Limitations - History of Present Illness INITIAL COMMENTS - FREE TEXT/NARRATIVE: HISTORY AND PHYSICAL: History of present illness: Patient is a 38-year-old female presents to the ED today with concern of a nasal cold and cough 3-4 days. Patient states she's been recently diagnosed with moderate COPD and is in place on several inhalers after the diagnosis. Patient states she was hospitalized here about a month and a half ago and since then has been doing much better until 4 days ago. Patient states she began having ear pain, nasal congestion, sore throat. Patient states today the ear pain and the cough. Patient states she has been coughing so hard at times she does feel short of breath/discomfort Patient states she's been taking her inhalers appropriately but does continue to smoke despite the diagnosis of COPD. Patient does have several appointments in the near future with pulmonology. patient denies any other symptoms or concerns at this time. Patient denies fever, chills, chest pain. Denies headache, neck stiff ness, change in vision, syncope, or near syncope. Denies nausea, vomiting, abdominal pain, diarrhea, constipation, or dysuria. Has not noted any blood in urine or stool. Patient has been eating and drinking appropriately. Review of systems: As per history of present illness and below otherwise all systems reviewed and negative. Past medical history: As per history of present illness and as reviewed below otherwise noncontributory. Surgical history: As per history of present illness and as reviewed below otherwise noncontributory. Social history: See social history for further information Family history: As per history of present illness and as reviewed below otherwise noncontributory. Physical exam: Exam is limited due to body habitus. General: Patient is alert, oriented, and in no acute distress. Patient sitting comfortably on exam table. HEENT: Atraumatic, normocephalic, pupils equal and reactive bilaterally, negative for conjunctival pallor or scleral icterus, mucous membranes moist, TMs are erythematous bilaterally and bulging on the left, throat clear, neck supple, nontender, trachea midline. No drooling or trismus noted. No meningeal signs. No hot potato voice noted. Bilateral clear nasal drainage. Lungs: Clear to auscultation, breath sounds equal bilaterally but are greatly diminished, chest nontender. Dry cough elicited frequently on exam Heart: S1S2, regular rate and rhythm without overt murmur Abdomen: Obese, Soft, nondistended, nontender. Negative for masses or hepatosplenomegaly. Negative for costovertebral tenderness. Pelvis: Stable nontender. Genitourinary: Deferred. Rectal: Deferred. Skin: Intact, warm, dry. No lesions or rashes noted. Extremities: Atraumatic, negative for cords or calf pain. Neurovascular unremarkable. Neuro: Awake, alert, oriented. Cranial nerves II through XII unremarkable. Cerebellum unremarkable. Motor and sensory unremarkable throughout. Exam nonfocal. Notes: Patient is 90% on room air. Dr. Lynn verbally involved in patient care. Discussed the importance for follow-up with the primary care provider. Voices understanding and is agreeable to plan of care. Denies any further questions or concerns at this time. Diagnostics: CBC, CMP, UA, chest x-ray, EKG, troponin Therapeutics: DuoNeb, Solu-Medrol Prescription: Azithromycin, prednisone, though her inhaler, DuoNeb Impression: Acute otitis media, bilateral COPD exacerbation Plan: 1. Take medication as prescribed. You can alternate ibuprofen or Tylenol as directed for pain and discomfort. 2. Follow-up with your primary care provider and the regional rehabilitation director as scheduled. Return to the ED if symptoms worsen and as needed and as discussed. Definitive disposition and diagnosis as appropriate pending reevaluation and review of above. chest area Pain Score (Numeric/FACES): 3 - Related Data Allergies Allergy/AdvReac Type Severity Reaction Status Date / Time No Known Allergies Allergy Verified 02/25/19 10:22 Home Meds: Home Meds Albuterol/Ipratropium [DuoNeb 3.0-0.5 MG/3 ML] 1 dose INH ASDIRECTED 02/25/19 [ History] Albuterol Sulfate [Proair Hfa] 2 puff INH ASDIRECTED 03/03/19 [History] Past Medical History HEENT History: Reports: None Cardiovascular History: Reports: None Respiratory History: Reports: None Other Respiratory History: cough, un diagnosed sleep apnea Gastrointestinal History: Reports: None Genitourinary History: Reports: None [employer] History: Reports: Polycystic Ovaries Musculoskeletal History: Reports: None Neurological History: Reports: None Psychiatric History: Reports: Anxiety, Depression Endocrine/Metabolic History: Reports: Obesity/BMI 30+ Hematologic History: Reports: None Immunologic History: Reports: None Oncologic (Cancer) History: Reports: None Dermatologic History: Reports: None - Infectious Disease History Infectious Disease History: Reports: None - Past Surgical History Head Surgeries/Procedures: Reports: None HEENT Surgical History: Reports: Myringotomy w Tube(s), Oral Surgery, Tonsillectomy Cardiovascular Surgical History: Reports: None Respiratory Surgical History: Reports: None GI Surgical History: Reports: Cholecystectomy Female Surgical History: Reports: None Neurological Surgical History: Reports: None Musculoskeletal Surgical History: Reports: None Oncologic Surgical History: Reports: None Dermatological Surgical History: Reports: None Social & Family History - Family History Family Medical History: Noncontributory - Tobacco Use Smoking Status *Q: Current Every Day Smoker Years of Tobacco use: 15 Packs/Tins Daily: 0.5 - Caffeine Use Caffeine Use: Reports: Coffee, Tea - Recreational Drug Use Recreational Drug Use: No - Living Situation & Occupation Living situation: Reports: , with Spouse, with Family (1 son) 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 ED EXAM, GENERAL - Physical Exam Exam: See Below (See dictation) Course - Vital Signs Last Recorded V/S: Last Vital Signs Temp 36.1 C 04/15/19 20:04 Pulse 96 04/15/19 20:04 Resp 18 04/15/19 20:04 BP 116/67 04/15/19 20:04 Pulse Ox 90 L 04/15/19 20:04 - Orders/Labs/Meds Orders: Active Orders 24 hr Category Date Time Status Communication Order [RC] STAT Care 04/15/19 19:56 Active EKG Documentation Completion [RC] STAT Care 04/15/19 19:01 Active RT Aerosol Therapy [RC] ASDIRECTED Care 04/15/19 19:02 Active Labs: Laboratory Tests 04/15/19 04/15/19 04/15/19 Range/Units 19:22 19:35 19:35 WBC 11.37 H (4.0-11.0) K/uL RBC 5.37 (4.30-5.90) M/uL Hgb 15.0 (12.0-16.0) g/dL Hct 47.0 H (36.0-46.0) % MCV 87.5 (80.0-98.0) fL MCH 27.9 (27.0-32.0) pg MCHC 31.9 (31.0-37.0) g/dL RDW Std Deviation 48.9 (28.0-62.0) fl RDW Coeff of Theresa 15 (11.0-15.0) % Plt Count 224 (150-400) K/uL MPV 11.00 (7.40-12.00) fL Neut % (Auto) 66.7 (48.0-80.0) % Lymph % (Auto) 22.8 (16.0-40.0) % [place]ney % (Auto) 6.9 (0.0-15.0) % Eos % (Auto) 3.2 (0.0-7.0) % Baso % (Auto) 0.4 (0.0-1.5) % Neut # (Auto) 7.6 H (1.4-5.7) K/uL Lymph # (Auto) 2.6 H (0.6-2.4) K/uL Harney # (Auto) 0.8 (0.0-0.8) K/uL Eos # (Auto) 0.4 (0.0-0.7) K/uL Baso # (Auto) 0.1 (0.0-0.1) K/uL Nucleated RBC % 0.0 /100WBC Nucleated RBCs # 0 K/uL Sodium 136 (136-145) mmol/L Potassium 3.9 (3.5-5.1) mmol/L Chloride 102 (98-107) mmol/L Carbon Dioxide 29.1 (21.0-32.0) mmol/L BUN 10 (7.0-18.0) mg/dL Creatinine 0.6 (0.6-1.0) mg/dL Est Cr Clr Drug Dosing 115.52 mL/min Estimated GFR (MDRD) > 60.0 ml/min Glucose 90 (74-106) mg/dL Calcium 8.9 (8.5-10.1) mg/dL Total Bilirubin 0.3 (0.2-1.0) mg/dL AST 17 (15-37) IU/L ALT 32 (14-63) IU/L Alkaline Phosphatase 81 (46-116) U/L Troponin I < 0.050 (0.000-0.056) ng/mL Total Protein 7.3 (6.4-8.2) g/dL Albumin 3.5 (3.4-5.0) g/dL Globulin 3.8 (2.6-4.0) g/dL Albumin/Globulin Ratio 0.9 (0.9-1.6) Urine Color YELLOW Urine Appearance CLEAR Urine pH 6.0 (5.0-8.0) Ur Specific [place] 1.020 (1.001-1.035) Urine Protein NEGATIVE (NEGATIVE) mg/dL Urine Glucose (UA) NEGATIVE (NEGATIVE) mg/dL Urine Ketones NEGATIVE (NEGATIVE) mg/dL Urine Occult Blood NEGATIVE (NEGATIVE) Urine Nitrite NEGATIVE (NEGATIVE) Urine Bilirubin NEGATIVE (NEGATIVE) Urine Urobilinogen 0.2 (<2.0) EU/dL Ur Leukocyte Esterase NEGATIVE (NEGATIVE) Meds: Medications Discontinued Medications Generic Name Dose Route Start Last Admin Trade Name Freq PRN Reason Stop Dose Admin Albuterol/Ipratropium 3 ml 04/15/19 19:02 04/15/19 19:04 Duoneb 3.0-0.5 Mg/3 Ml NEB 04/15/19 19:03 3 ml ONETIME ONE Administration Albuterol/Ipratropium Confirm 04/15/19 19:02 04/15/19 19:09 Duoneb 3.0-0.5 Mg/3 Ml Administered 04/15/19 19:03 Not Given Dose 3 ml .ROUTE .STK-MED ONE Methylprednisolone Sodium Succinate 125 mg 04/15/19 19:09 04/15/19 19:36 Solu-Medrol IV 04/15/19 19:10 125 mg ONETIME ONE Administration Departure - Departure Time of Disposition: 20:19 Disposition: Home, Self-Care 01 Clinical Impression: COPD exacerbation Acute otitis media Qualifiers: Otitis media type: suppurative Laterality: bilateral Recurrence: non-recurrent Spontaneous tympanic membrane rupture: without spontaneous rupture Qualified Code(s): H66.003 - Acute suppurative otitis media without spontaneous rupture of ear drum, bilateral - Discharge Information Referrals: PCP,None [Primary Care Provider] - Forms: ED Department Discharge Additional Instructions: The following information is given to patients seen in the emergency department who are being discharged to home. This information is to outline your options for follow-up care. We provide all patients seen in our emergency department with a follow-up referral. The need for follow-up, as well as the timing and circumstances, are variable depending upon the specifics of your emergency department visit. If you don't have a primary care physician on staff, we will provide you with a referral. We always advise you to contact your personal physician following an emergency department visit to inform them of the circumstance of the visit and for follow-up with them and/or the need for any referrals to a consulting specialist. The emergency department will also refer you to a specialist when appropriate. This referral assures that you have the opportunity for follow-up care with a specialist. All of these measure are taken in an effort to provide you with optimal care, which includes your follow-up. Under all circumstances we always encourage you to contact your private physician who remains a resource for coordinating your care. When calling for follow-up care, please make the office aware that this follow-up is from your recent emergency room visit. If for any reason you are refused follow-up, please contact the [facility] Emergency Department at and asked to speak to the emergency department charge nurse. [facility] [address] [place] [id number] [place] [address] 1. Take medication as prescribed. Continue to alternate ibuprofen and Tylenol as directed for pain and discomfort. 2. Follow-up with your primary care provider as discussed. Return to the ED as needed and as discussed. - My Orders Last 24 Hours: My Active Orders 04/15/19 19:01 EKG Documentation Completion [RC] STAT 04/15/19 19:02 RT Aerosol Therapy [RC] ASDIRECTED 04/15/19 19:56 Communication Order [RC] STAT - Assessment/Plan Last 24 Hours: My Active Orders 04/15/19 19:01 EKG Documentation Completion [RC] STAT 04/15/19 19:02 RT Aerosol Therapy [RC] ASDIRECTED 04/15/19 19:56 Communication Order [RC] STAT
--- NOTE | 2019-04-15 20:03 | CR ---
INDICATION: Cough TECHNIQUE: Chest 2 views COMPARISON: February 27, 2019 FINDINGS: Cardiovascular and mediastinum: Heart size and vasculature are normal in caliber and appearance. Lungs and pleural spaces: Lungs are clear. No sign of infiltrate or mass. No sign of pleural effusion. No pneumothorax. Bones and soft tissues: No significant findings. IMPRESSION: No acute findings and no significant changes from the prior exam. Dictated by Mannie Kahn MD @ Apr 15 2019 8:00PM Signed by Dr. Mannie Kahn @ Apr 15 2019 8:01PM
[2019-04-15 20:09] LABS: CHLORIDE,CL 102 mmol/L (98-107); SODIUM,NA 136 mmol/L (136-145)
== END 2019-04-15 20:45 | disposition home or self-care (01) ==
LOC: MW.ED 18:48
DX: J44.1 Chronic obstructive pulmonary disease with (acute) exacerbation (principal); H66.003 Acute suppurative otitis media without spontaneous rupture of ear drum, bilateral; E66.9 Obesity, unspecified; F17.210 Nicotine dependence, cigarettes, uncomplicated; Z68.43 Body mass index [BMI] 50.0-59.9, adult
CPT/HCPCS: 36415; 71046; 80053; 81003; 84484; 85025; 93005; 96374; 99285; J2930; 99284; J7620-GY

== ENCOUNTER 2025-09-29 06:58 | Emergency (ER) | payer BC ==
[2025-09-29] MEDS: Acetaminophen/HYDROcodone 325-5 MG Tab PO ONE (07:23)
[2025-09-29] MEDS: Dexamethasone Sod Phos Preservative Free 10 MG/ML Vial IM ONE (07:24)
== END 2025-09-29 07:50 | disposition home or self-care (01) ==
LOC: MW.ED 06:58
DX: M06.9 Rheumatoid arthritis, unspecified (principal); E66.9 Obesity, unspecified; Z90.49 Acquired absence of other specified parts of digestive tract; Z79.899 Other long term (current) drug therapy; Z90.410 Acquired total absence of pancreas; Z91.030 Bee allergy status; Z68.42 Body mass index [BMI] 45.0-49.9, adult
CPT/HCPCS: 96372; 99283; A9270; J1100; 99284